=== PATIENT | male | born 1945 | race Two or more races ===

== ENCOUNTER → 2022-04-22 | Outpatient (CLI) | payer MEDICARE | LOC: RAD 10:35 | PROVIDERS: ATTEND Internal Medicine | DX: J41.0 Simple chronic bronchitis (principal) | CPT/HCPCS: 71046 ==

== ENCOUNTER → 2022-10-10 | Outpatient (CLI) | payer MEDICARE | LOC: RAD 10:37 | PROVIDERS: ATTEND Internal Medicine | DX: M43.02 Spondylolysis, cervical region (principal) | CPT/HCPCS: 72050 ==